=== PATIENT | female | born 1965 | race Hispanic/Latino ===

== ENCOUNTER 2019-06-26 15:56 | Emergency (ER) | payer OTHER ==
[~2019-06-26] VITALS: Ht 157.5 cm; Wt 81.2 kg
--- NOTE | 2019-06-26 17:36 | Diagnostic Imaging Report ---
EXAMINATION: CXR 2 VIEW - HOPD INDICATION: ^chest pain ^[id number] ^[id number] COMPARISON: None FINDINGS: PA and lateral views TUBES and LINES: None. LUNGS: Lungs are well inflated. There is no evidence of pneumonia or pulmonary edema. PLEURA: No pleural effusion or pneumothorax. HEART AND MEDIASTINUM: The cardiomediastinal silhouette is unremarkable. BONES AND SOFT TISSUES: No acute osseous lesion. Soft tissues are unremarkable. UPPER ABDOMEN: No free air under the diaphragm. IMPRESSION: No acute thoracic abnormality. Signed by: Dr. Adriel Ozuna MD on 06/26/2019 5:32 PM
[2019-06-26 17:53] VITALS: BP 122/67
[2019-06-26] MEDS ORDERED: ALPRAZOLAM0.25 MG PO (17:59)
== END 2019-06-26 18:10 | disposition home or self-care (01) ==
LOC: FSED 15:56
DX: R07.89 Other chest pain (principal); J45.20 Mild intermittent asthma, uncomplicated; F41.1 Generalized anxiety disorder
CPT/HCPCS: 71046; 80053; 81003; 81025; 82553; 84484; 85025; 85379; 93005; 99284